=== PATIENT | male | born 1955 | race Caucasian/White ===

== ENCOUNTER 2017-02-17 09:19 | Emergency (ER) | payer OTHER ==
[~2017-02-17] VITALS: Ht 172.7 cm; Wt 86.3 kg
[~2017-02-17 09:19] MED LIST: FURO20 PO
[2017-02-17 09:22] VITALS: BP 132/70; PULSE 90; RESP 20; TEMP 98.3; O2SAT 98
[2017-02-17] MEDS ORDERED: CLINDAMYCIN INJ 600 MG in SODIUM CHLORIDE 0.9% INJ 100 ML IV ONE (10:15)
[2017-02-17 10:23] LABS: AUTOMATED NEUTROPHIL # 6.4 TH/MM3 (1.8-7.7); BASOPHIL # 0.1 TH/MM3 (0-0.2); BASOPHIL % 0.7 % (0.0-2.0); EOSINOPHIL # 0.1 TH/MM3 (0-0.4); EOSINOPHIL % 0.9 % (0.0-4.0); HEMATOCRIT 39.4 % (39.0-51.0); HEMO FLAGS DIFF FINAL; LYMPH % 13.1 % (9.0-44.0); LYMPHOCYTE # 1.1 TH/MM3 (1.0-4.8); MEAN CORPUSCULAR HEMOGLOBIN 33.4 PG (27.0-34.0); MONO % 12.5 % (0.0-8.0); NEUT % 72.8 % (16.0-70.0); PLATELET COUNT 212 TH/MM3 (150-450); RED BLOOD COUNT 4.02 MIL/MM3 (4.50-5.90); RED CELL DISTRIBUTION WIDTH 15.5 % (11.6-17.2); WHITE BLOOD COUNT 8.8 TH/MM3 (4.0-11.0)
[2017-02-17 10:45] LABS: ALT (GPT) 26 U/L (12-78); ANION GAP 7 MEQ/L (5-15); AST (GOT) 35 U/L (15-37); BICARBONATE 25.6 MEQ/L (21.0-32.0); BLOOD UREA NITROGEN 6 MG/DL (7-18); CHLORIDE 104 MEQ/L (98-107); GLOMERULAR FILTRATION RATE 78 ML/MIN (>89); SODIUM (NA) 137 MEQ/L (136-145)
[2017-02-17 10:47] LABS: ALKALINE PHOSPHATASE 75 U/L (45-117); TOTAL BILIRUBIN ADULT 0.4 MG/DL (0.2-1.0)
--- NOTE | 2017-02-17 11:15 | RADRPT ---
EXAM DATE/TIME: 02/17/2017 10:13 [place] COMPARISON: No previous studies available for comparison. INDICATIONS : Left leg pain and swelling. MEDICAL HISTORY : Deep venous thrombosis. Hearing loss. Left leg wounds. SURGICAL HISTORY : Right hip replacement. ENCOUNTER: Initial ACUITY: 1 day PAIN SCORE: 5/10 LOCATION: Left leg. TECHNIQUE: Venous ultrasound of the leg was performed from the inguinal ligament to the proximal calf. Real-zheng e, color Doppler and spectral tracing, compression and augmentation techniques were used. FINDINGS: Adenopathy in the left groin generalized edema. Scattered nonocclusive thrombus is seen in both the superficial and deep venous system. CONCLUSION: Nonocclusive thrombus, both superficial and deep venous system. Beto Silva MD FACR on February 17, 2017 at 11:12 Board Certified Radiologist. This report was verified electronically.
[2017-02-17] MEDS ORDERED: ACETAMINOPHEN/HYDROcodone 325 MG/5 MG TAB PO ONE (11:30)
[2017-02-17] MEDS ORDERED: RIVAROXABAN 15 MG TAB PO ONE (11:30)
[2017-02-17] MEDS ORDERED: CLIN1CAP6 PO (11:40)
[2017-02-17] MEDS ORDERED: HYDR-3533 PO (11:40)
[2017-02-17] MEDS ORDERED: XARE15TA PO (11:40)
--- NOTE | 2017-02-17 11:40 | PD ---
HPI Chief Complaint: Skin Problem Time Seen by Provider: 09:32 Travel History International Travel<30 days: No Contact w/Intl Traveler<30days: No Traveled to known affect area: No History of Present Illness HPI Is otherwise pretty healthy 61 year-old woman presents emergent part of left leg swelling. He's had a DVT in the past. Is not any blood thinners now. States that he injured the leg a couple weeks ago and never really healed. He' s had a new wound on his right leg with blistering and ecchymosis over the past day or so. The entire leg is diffusely swollen now. History Past Medical History Narrative Medical History of DVT in the past Social History Alcohol Use: Yes (occ) Tobacco Use: Yes (1 PPD) Allergies-Medications (Allergen,Severity, Reaction): Coded Allergies: No Known Allergies (Unverified , 09/05/13) Reported Meds & Prescriptions Reported Meds & Active Scripts Active No Active Prescriptions or Reported Medications Review of Systems Except as stated in HPI: all other systems reviewed are Neg Physical Exam Narrative GENERAL: Well-appearing 61-year-old man, no acute distress. SKIN: Focused skin assessment warm/dry. HEAD: Atraumatic. Normocephalic. EYES: Pupils equal and round. No scleral icterus. No injection or drainage. ENT: No nasal bleeding or discharge. Mucous membranes pink and moist. NECK: Trachea midline. No JVD. CARDIOVASCULAR: Regular rate and rhythm. No murmur appreciated. RESPIRATORY: No accessory muscle use. Clear to auscultation. Breath sounds equal bilaterally. GASTROINTESTINAL: Abdomen soft, non-tender, nondistended. Hepatic and splenic margins not palpable. MUSCULOSKELETAL: No obvious deformities. Diffuse edema in the left leg. Good pulses. Sluggish cap refill. He has a chronic wound on the anterior calixto. He also has a ecchymotic blister with surrounding erythema and redness on the upper thigh. NEUROLOGICAL: Awake and alert. No obvious cranial nerve deficits. Motor grossly within normal limits. Normal speech. PSYCHIATRIC: Appropriate mood and affect; insight and judgment normal. Data Data Last Documented VS Vital Signs Date Time Temp Pulse Resp B/P (MAP) Pulse Ox O2 Delivery O2 Flow Rate FiO2 02/17/17 09:22 98.3 90 20 132/70 (90) 98 Room Air Orders Orders Us Leg Venous Doppler (02/17/17 ) Complete Blood Count With Diff (02/17/17 10:02) Comprehensive Metabolic Panel (02/17/17 10:02) Iv Access Insert/Monitor (02/17/17 10:02) Wound Culture And Gram Stain (02/17/17 10:02) Clindamycin Inj (Cleocin Inj) (02/17/17 10:15) Acetamin-Hydrocod 325-5 Mg ([employer] 5-325 (02/17/17 11:30) Rivaroxaban (Xarelto) (02/17/17 11:30) Labs Laboratory Tests Test 02/17/17 10:00 White Blood Count 8.8 TH/MM3 Red Blood Count 4.02 MIL/MM3 Hemoglobin 13.4 GM/DL Hematocrit 39.4 % Mean Corpuscular Volume 98.0 FL Mean Corpuscular Hemoglobin 33.4 PG Mean Corpuscular Hemoglobin Concent 34.0 % Red Cell Distribution Width 15.5 % Platelet Count 212 TH/MM3 Mean Platelet Volume 7.7 FL Neutrophils (%) (Auto) 72.8 % Lymphocytes (%) (Auto) 13.1 % Monocytes (%) (Auto) 12.5 % Eosinophils (%) (Auto) 0.9 % Basophils (%) (Auto) 0.7 % Neutrophils # (Auto) 6.4 TH/MM3 Lymphocytes # (Auto) 1.1 TH/MM3 Monocytes # (Auto) 1.1 TH/MM3 Eosinophils # (Auto) 0.1 TH/MM3 Basophils # (Auto) 0.1 TH/MM3 CBC Comment DIFF FINAL Differential Comment Blood Urea Nitrogen 6 MG/DL Creatinine 0.98 MG/DL Random Glucose 103 MG/DL Total Protein 8.8 GM/DL Albumin 3.3 GM/DL Calcium Level 8.9 MG/DL Alkaline Phosphatase 75 U/L Aspartate Amino Transf (AST/SGOT) 35 U/L Alanine Aminotransferase (ALT/SGPT) 26 U/L Total Bilirubin 0.4 MG/DL Sodium Level 137 MEQ/L Potassium Level 4.0 MEQ/L Chloride Level 104 MEQ/L Carbon Dioxide Level 25.6 MEQ/L Anion Gap 7 MEQ/L Estimat Glomerular Filtration Rate 78 ML/MIN MDM Medical Decision Making Medical Screen Exam Complete: Yes Emergency Medical Condition: Yes Interpretation(s) LABS: CBC is unremarkable. CMP is unremarkable. Ultrasound: Nonocclusive thrombus with superficial deep venous system. Differential Diagnosis DVT, infection, sepsis, other Narrative Course 61-year-old man, leg swelling and nonhealing lesions with evidence of infection. Ultrasound was positive for DVT. He'll need antibiotics, anticoagulation, and outpatient follow-up. Diagnosis Primary Impression: DVT (deep venous thrombosis) Additional Impression: Cellulitis Additional Instructions: Take Xarelto as prescribed. Take antibiotics as prescribed. Return to the emergency department for any new or worsening symptoms. Med/Other Pt SpecificInfo: Prescription(s) given Scripts Hydrocodone-Acetaminophen (Lortab) 5-325 Mg Tab 1-2 TAB PO Q6H Y for PAIN, #21 TAB 0 Refills Prov: Felton Whalen MD 02/17/17 Clindamycin (Clindamycin) 300 Mg Cap 300 MG PO TID for Infection, #21 CAP 0 Refills Prov: Felton Whalen MD 02/17/17 Rivaroxaban (Xarelto) 15 Mg Tab 15 MG PO Q12HR for Blood Clot Prevention for 21 Days, TAB 0 Refills Prov: Felton Whalen MD 02/17/17 Disposition: 01 DISCHARGE HOME Condition: Stable Felton Whalen MD Feb 17, 2017 11:40
[2017-02-17 11:45] VITALS: BP 142/70
== END 2017-02-17 12:02 | disposition home or self-care (01) ==
LOC: NEPE 09:19
DX: I82.492 Acute embolism and thrombosis of other specified deep vein of left lower extremity (principal); F17.200 Nicotine dependence, unspecified, uncomplicated
CPT/HCPCS: 80053; 85025; 87070; 93971; 96365